=== PATIENT | female | born 1985 | race Caucasian/White ===

== ENCOUNTER → 2020-08-27 14:00 | Outpatient (BNVA) | payer OTHER, SELFPAY | PROVIDERS: Family Provider Obstetrics & Gynecology; PCP Obstetrics & Gynecology; Visit Provider Nurse Practitioner Family | DX: Z20.822 Contact with and (suspected) exposure to COVID-19 (principal); R05 Cough | CPT/HCPCS: 87635 ==

== ENCOUNTER → 2023-05-06 09:30 | Outpatient (BNVA) | payer OTHER, SELFPAY | PROVIDERS: Family Provider Obstetrics & Gynecology; PCP Obstetrics & Gynecology; Visit Provider Nurse Practitioner Women's Health | DX: Z12.4 Encounter for screening for malignant neoplasm of cervix; Z11.3 Encounter for screening for infections with a predominantly sexual mode of transmission | CPT/HCPCS: 87624; 87806 ==

== ENCOUNTER → 2024-01-27 13:46 | Outpatient (BNVA) | payer OTHER, SELFPAY | PROVIDERS: Family Provider Obstetrics & Gynecology; PCP Obstetrics & Gynecology; Visit Provider Nurse Practitioner Women's Health | DX: R10.32 Left lower quadrant pain (principal) | CPT/HCPCS: 76817 ==

== ENCOUNTER 2024-01-27 15:31 | Outpatient (CLI) | payer OTHER, SELFPAY ==
[2024-01-27 16:07] LABS: Basophils % 0.4 %; Eosinophils # 0.1 10^3/uL (0.0-0.8); Eosinophils % 1.2 %; Lymphocytes % 24.9 %; Mean Corpuscular HGB Conc 34.3 g/dL (30-55); Mean Corpuscular Hemoglobin 30.4 pg (27-33); Mean Corpuscular Volume 88.9 fl (85-98); Mean Platelet Volume 9.6 fL (7.4-10.4); Monocytes # 0.6 10^3/uL (0.2-0.9); Monocytes % 7.3 %; Neutrophils # 5.31 10^3/uL (1.8-7.7); Nucleated Red Blood Cells % 0 %; Platelet Count 255 10^3/cmm (157-399); Red Cell Distribution Width 12.4 % (12.1-15.1); White Blood Count 8.06 10^3/uL (3.29-11.43)
== END 2024-01-27 15:32 | disposition home or self-care (01) ==
LOC: LAB 15:36
PROVIDERS: Family Provider Obstetrics & Gynecology; PCP Obstetrics & Gynecology; Visit Provider Nurse Practitioner Women's Health
DX: O03.9 Complete or unspecified spontaneous abortion without complication (principal)
CPT/HCPCS: 36415; 81025; 84702; 85025; 86850; 86900

== ENCOUNTER 2024-01-28 08:54 | Day surgery (SDC) | payer OTHER, SELFPAY ==
[2024-01-28] VITALS (13 sets, daily range): BP systolic 104–118; BP diastolic 65–80; PULSE 85–102; RESP 14–18; TEMP 36.2–37.1; O2SAT 94–100; BMI 22.6
--- NOTE | 2024-01-28 05:20 | PM.OBGYHP ---
Providers/Chief Complaint Admitting Physician: Aleksandr Sullivan MD Primary GENERAL INTERNIST AND PHYSICIAN LEADER: Aleksandr Sullivan MD Chief Complaint: O00.109 HPI GENERAL INTERNIST AND PHYSICIAN LEADER History of Present Illness 38 y.o. On micronor since August 2023 for control Had + urine test on January 08, 2024 Began to have bleeding January 15, 2024 c/o left-sided pelvic pain x one week no fever, chills, nausea, vomiting, dizziness patient also desires permanent sterilization Medications/Allergies Home Medications Medication Instructions Recorded Confirmed Last Taken Type sertraline 50 mg tablet 50 mg PO DAILY 05/06/23 01/27/24 01/26/24 17:00 History Allergies Allergy/AdvReac Type Severity Reaction Status Date / Time No Known Allergies Allergy Verified 01/27/24 16:20 PFSH GENERAL INTERNIST AND PHYSICIAN LEADER PFSH: Family History Denies family history of Colon cancer Ovarian cancer Prostate cancer Diabetes Heart disease Hyperlipidemia Breast cancer Hypertension Uterine cancer Thyroid disease Stroke Social History Smoking and tobacco/nicotine status: never used tobacco/nicotine History History History 2 Term 2 0 Miscarriages/Ectopic 0 Living Children 2 Physical Exam Narrative: Weight 138 lbs; 5?5? General: comfortable, awake, alert Abd: soft, nondistended Mild tenderness LLQ No rebound Serum bhcg 01-27-24 224 Pelvic sono 01-27-24 no intrauterine gestational sac or pole Normal ovaries 4 cm mass in left adnexa with mixed echogenicity Results Labs OB ([facility]): Blood Type B Positive 01/27/24 Antibody Screen Negative 01/27/24 Hct 40.0 % (36-47) 01/27/24 Hgb 13.70 g/dL (11.27-16.99) 01/27/24 Rho(D) Type Rh positive 01/27/24 Plt Count 255 10^3/cmm (157-399) 01/27/24 HIV 1&2 Ab & HIV 1 Ag Non-reactive (Non-Reactiv) 05/06/23 Ser , Semi-Qnt 224.80 mIU/mL 01/27/24 HCG, Qual Positive (Negative) H 01/27/24 Pap Smear Interpret See note 05/06/23 A&P Assessment and plan (1) Ectopic : + test Left lower quadrant pain 4 cm mass left adnexa on pelvic sono Clinical history, exam, and pelvic sono highly suggest possible left tubal ectopic Discussed above findings with patient Patient was not contemplating since she was on control Recommend laparoscopy, left salpingectomy for tubal ectopic (2) Encounter for consultation for female sterilization: At the same time, patient desires permanent sterilization Options of OCs, DMPA, nexplanon, IUD discussed Patient does not want reversible control Patient adamant re permanent sterilization Understands irreversibility of procedure Procedure of laparoscopic bilateral partial salpingectomy explained Including risks of infection; bleeding; injury to internal organs, such as bowel, bladder, blood vessels; anesthesia; blood transfusions Patient understands and wants to proceed Plan laparoscopic bilateral salpingectomy Attestations Medical Necessity Statement*: patient with possible left tubal ectopic and desires permanent sterilization Coding Level of Care Code Acute Code for Chg Fwd Diagnoses Ectopic O00.90 Encounter for consultation for female sterilization Z30.09 Time Spent (min) 60
[2024-01-28] MEDS: scopolamine 1.5 Patch 1 PATCH TRANSDERMA (09:30)
[2024-01-28] MEDS: sodium chloride 0.9% 1,000 ML 30 ML IV (09:36)
--- NOTE | 2024-01-28 10:33 | W.PM.OPSUD ---
Surgery/Procedure H&P Update DATE OF PROCEDURE: January 28, 2024 DATE H&P PERFORMED: 01/27/24 H&P UPDATE INFORMATION: I have reviewed H&P completed within last 30 days, I have examined patient prior to procedure and No changes to prior documentation PREOP DIAGNOSIS: possible left tubal ectopic ; desires permanent sterilization PLANNED PROCEDURE: Operation Date: 01/28/24 10:45 Proposed Procedures p Laparoscopic Salpingectomy 92203, O00.109,Z30.2(Bilateral) - Aleksandr Sullivan MD
--- NOTE | 2024-01-28 10:53 | ANES.PREANE2 ---
Pre-Anesthetic Assessment Height/Weight: Height 1.65 m Weight 61.689 kg Temp Pulse Resp BP Pulse Ox O2 Del Method 98.8 F 85 18 106/65 100 Room Air 01/28/24 09:14 01/28/24 09:14 01/28/24 09:14 01/28/24 09:14 01/28/24 09:14 01/28/24 09:14 Preop Diagnosis: possible left tubal ectopic ; desires permanent sterilization Operation Date: 01/28/24 10:45 Proposed Procedures p Laparoscopic Salpingectomy 56789, O00.109,Z30.2(Bilateral) - Aleksandr Sullivan MD Last intake: Intake Last Liquid Date 01/27/24 Last Liquid Time 21:00 Last Solid Date 01/27/24 Last Solid Time 21:00 Social Tobacco Exam alert, oriented x 3, clear to auscultation bilaterally and regular rate & rhythm Airway Submandibular: within normal limits Cervical ROM: within normal limits Mallampati: Class I Pulmonary None reported CV/HEM None reported None reported Hepatic None reported GI None reported Metabolic None reported Musc/skel None reported Neuropsych None reported Anesthetic Plan ASA status: 2 Anesthesia: General Medications/Allergies Home Medications Medication Instructions Recorded Confirmed Last Taken Type sertraline 50 mg tablet 50 mg PO DAILY 05/06/23 01/27/24 01/27/24 History Allergies Allergy/AdvReac Type Severity Reaction Status Date / Time No Known Allergies Allergy Verified 01/27/24 16:20 Current Medications Generic Name Dose Route Start Last Admin Trade Name Freq PRN Reason Stop Dose Admin Sodium Chloride 1,000 mls @ 30 mls/hr 01/28/24 09:15 01/28/24 09:36 Sodium Chloride 0.9% IV 01/29/24 09:14 30 mls/hr .Q24H AXEL Administration PFSH Anesthesia Family History Denies family history of Colon cancer Ovarian cancer Prostate cancer Diabetes Heart disease Hyperlipidemia Breast cancer Hypertension Uterine cancer Thyroid disease Stroke Social History Smoking and tobacco/nicotine status: never used tobacco/nicotine Data Anesthesia Cardiac Studies: No Data to Display
[2024-01-28] MEDS: fentaNYL 50 mcg/mL INJ 2mL IVP (12:39)
--- NOTE | 2024-01-28 13:10 | P.OP_ITS ---
Operative Report Date of procedure: January 28, 2024 Pre-op diagnosis: approximately 6-weeks gestation Left tubal ectopic Desires permanent sterilization Post-op diagnosis: same Post-op findings: Approximately 3 cm left tubal ectopic Approximately 50 cc blood / clots in pelvis Normal uterus Normal ovaries Normal right fallopian tube Procedure done: laparoscopy laparoscopic bilateral salpingectomy Implants: none Specimens removed/disposition: left tubal ectopic / right fallopian tube Surgeon: Aleksandr Sullivan MD Anesthesia: General Estimated blood loss: 50 cc blood / clots already in abdomen Intraoperative blood loss approximately 5 cc Complications: none Findings: Approximately 3 cm left tubal ectopic Approximately 50 cc blood / clots in pelvis Normal uterus Normal ovaries Normal right fallopian tube Brief History: 38 y.o. at approximately 6 weeks of gestation with LLQ pain. Pelvic sono showed left tubal ectopic. Patient also desires permanent sterilization. Procedure: Informed consent was obtained. The patient was taken to the OR and placed on the table. General endotracheal anesthesia was induced. The patient was then placed in dorsolithotomy position. The abdomen and perineum were then prepped and draped in the usual fashion. A 5 mm subumbilical skin incision was made. A 5 mm trocar with sheath was then inserted into the peritoneal cavity under direct visualization with the laparoscope. After confirming intraperitoneal position, pneumoperitoneum was achieved. Two separate 5 mm incisions were made in the right and left mid- quadrants. 5 mm trocars with sheaths were then inserted into the peritoneal cavity under direct visualization with the laparoscope. There was approx. 50 cc of blood and blood clots in pelvis. The uterus and ovaries were seen to be normal. The left fallopian tube showed an obvious 3-4 cm dilatation c/w tubal ectopic. The right fallopian tube is normal. Suction-taproom attendant was used to remove blood and clots from the pelvis. A Ligasure device was used to excise the left fallopian tube segment with the ectopic gestation. The right fallopian tube was also excised using the Ligasure device. No bleeding was seen. Due to the size of the fallopian tube segment, a 10 mm trocar with sheath was placed at the umbilical port site. An endo-pouch was used to remove both tubal specimens. The uterus, ovaries, and right fallopian tube were again seen to be normal. All instruments were removed from the abdominal cavity after the pneumoperitoneum was allowed to escape. The skin incisions were closed using 3- O chromic in subcuticular fashion. Dermabond was applied. The patient was then placed supine and awakened, taken the the PACU in good condition. Postoperative condition: good Complications: none EBL: 50 cc already in abdomen Intraoperative blood loss approximately 5 cc Sponge, needle and instruments counts were correct x two
--- NOTE | 2024-01-28 15:58 | ANE.PACU2 ---
Inpatient post-anesthesia follow up: Airway intact: Yes Vital signs: Temperature 98.1 F Pulse Rate 91 Respiratory Rate 17 Blood Pressure 110/73 Pulse Oximetry 96 Oxygen Delivery Me thod Room Air Oxygen Flow Rate Fraction of Inspir ed Oxygen Hydration adequate: Yes Nausea and vomiting: No Pain level: controlled Mental status: Baseline Additional Comments: no apparent anesthetic complications noted
== END 2024-01-28 13:40 | disposition home or self-care (01) ==
PROVIDERS: Visit Provider Obstetrics & Gynecology
PROC: (CPT 58661; principal; 2024-01-28 10:35)
DX: O00.102 Left tubal pregnancy without intrauterine pregnancy (principal); Z30.2 Encounter for sterilization
CPT/HCPCS: 58661; 59151; 36415; 88305; J1100; J1885; J2250; J2405; J2704; J3010; J3490; J7030